=== PATIENT | male | born 1970 | race Caucasian/White ===

== ENCOUNTER 2019-08-22 13:18 | Emergency (ER) | payer OTHER, SELFPAY ==
[2019-08-22 13:25] VITALS: BP 155/100; PULSE 111; TEMP 36.8; O2SAT 99
--- NOTE | 2019-08-22 13:45 | DI.CT_ITS ---
EXAM: CT HEAD WO CLINICAL HISTORY: Amnesia after sex. TECHNIQUE: Imaging Protocol: Axial computed tomography images with coronal and sagittal reformatted images were created and reviewed COMPARISON: No exams were available for comparison FINDINGS: Ventricles and Extra axial spaces: Normal in size and morphology for the patient's age. Hemorrhage: None. Cerebral parenchyma: Normal. Midline shift: None. Brainstem/Cerebellum: Normal. Calvarium: Normal. Visualized Paranasal sinuses/Mastoids: Clear. IMPRESSION: Normal CT of the head. RADIATION DOSE DELIVERED: DATA REPOSITORY: All CT scans at this facility are submitted to the National Radiology Data Registry (NRDR) Dose Index Registry (DIR) with the [employer] (A[employer]). RADIATION OPTIMIZATION: All CT scans at this facility use at least one of these dose optimization te chniques: automated exposure control; mA and/or kV adjustment per patient size (includes targeted exa ms where dose is matched to clinical indication); or iterative reconstruction.
[2019-08-22 14:02] LABS: Bilirubin Negative (Negative); Blood Negative (Negative); Clarity Clear (Clear); Glucose Negative (Negative); Ketones Negative (Negative); Leukocyte Esterase Negative (Negative); Nitrite Negative (Negative); Urobilinogen 0.2 EU/dL (Up TO 0.2)
[2019-08-22 14:15] LABS: Abs Immature Grans 0.04 k/cumm (0.0-0.09); Absolute Basophil Count 0.03 k/cumm (0.0-0.2); Absolute Eosinophil Count 0.07 k/cumm (0.0-0.7); Absolute Monocyte Count 0.56 k/cumm (0.11-0.7); Basophils % 0.3; Eosinophils % 0.6; HCT 42.5 % (40.0-50.0); HGB 15.6 g/dL (13.5-17.5); Immature Grans % 0.4 %; Lymphocytes % 18.3; Mean Corp. HGB Concentration 36.7 g/dL (32.0-36.0); Mean Corpuscular Hemoglobin 32.8 pg (27.0-33.0); Mean Corpuscular Volume 89.5 fL (80-95); Mean Platelet Volume 10.1 fL (8.0-11.0); Monocytes % 5.1; Neutrophils % 75.3; Platelet Count 264 x1000/uL (130-400); RBC 4.75 m/cumm (4.50-6.00); RBC Distribution Width 12.5 % (11.8-14.1)
[2019-08-22 14:16] LABS: Absolute Lymphocyte Count 1.99 k/cumm (1.2-3.4); Absolute Neutrophil Count 8.21 k/cumm (1.2-6.7)
[2019-08-22 14:23] LABS: ALT 63 U/L (16-63); AST 29 U/L (15-37); Albumin 4.1 g/dL (3.4-5.0); Alkaline Phosphatase 81 U/L (46-116); BUN 15 mg/dL (7-18); Bilirubin, Total 0.7 mg/dL (0.2-1.0); CREATININE 1.13 mg/dL (0.70-1.30); Calcium 8.4 mg/dL (8.5-10.1); Chloride 105 mmol/L (98-107); Glucose 113 mg/dL (74-106); Potassium 3.9 mmol/L (3.5-5.1); Sodium 141 mmol/L (136-145); Total Protein 7.4 g/dL (6.4-8.2)
--- NOTE | 2019-08-22 14:50 | DI.VRAD_ITS ---
PROCEDURE INFORMATION: Exam: CT Head Without Contrast Exam date and time: 08/22/2019 1:55 PM Age: 49 years old Clinical indication: Other: Amnesia after sex TECHNIQUE: Imaging protocol: Computed tomography of the head without contrast. COMPARISON: No relevant prior studies available. FINDINGS: Brain: The ventricles and the cortical sulci are within normal limits. There is no evidence of acute hemorrhage, mass or shift. There is no evidence of an acute cortical or major vascular territory infarct. No abnormal extra-axial collections are identified. Ventricles: No significant ventricular enlargement/hydrocephalus. Bones/joints: There is no acute bony abnormality Sinuses: No significant sinus opacification or fluid level Mastoid air cells: No significant mastoid opacification Soft tissues: Subcutaneous soft tissues are unremarkable IMPRESSION: No acute findings. Dictated and Authenticated by: Samantha Fraga MD. Ordering:NAV Herman MD
--- NOTE | 2019-08-22 15:02 | ED.GENADUL_ITS ---
Discharge Plan Disposition Patient Disposition: HOME Condition: Improving Discharge Details Chief Complaint: GenMedical Clinical Impression: Memory loss, short term Primary Care Provider: Unknown,Unknown ED Provider: Virgil Cruz Home Meds and New Rx's Prescriptions: No Action paroxetine HCl [Paxil] 40 mg Tablet 40 mg PO DAILY RF: 0 Discharge Instructions Instructions: Transient Global Amnesia (ED) Additional Instructions: Work-up in the ER has been unremarkable and it appears as though his cognition is returning to baseline. Like we discussed, transient global amnesia is the most likely diagnosis however at this time I will use short-term memory loss to have you follow-up with our neurology team. Please contact her office on Saturday for prompt outpatient reevaluation. Please watch for new or worsening symptoms and return to the ER for any concerns Referrals: Lizeth Bernardo MD [ [facility] STAFF PHYSICIAN] - Medical Decision Making 49-year-old gentleman presenting with short-term memory loss after sexual intercourse today. His neurologic exam is unremarkable except for the inability to answer short-term memory questions. There is no recent illness or trauma. Most likely diagnosis is transient global amnesia; however, this is now his second episode and he has never been evaluated or worked up. I do believe that obtaining routine laboratory values and obtaining head CT is reasonable to rule out intracranial process, infectious process, electrolyte abnormality, etc. Work-up in the ER is unremarkable for emergent process. Upon reevaluation patient was noted to ambulate steadily to the restroom. Patient's and friend believe that he is not back to baseline but he is progressing in that direction. They report that his sense of humor is returning and that he does seem to remember a few details now that he could not remember earlier. We discussed his work-up here in the ER. We discussed her options. Observing in the ER longer was offered until patient did return to baseline mental status but patient and friend did not feel this was necessary. They were comfortable with releasing him into their care at this time with the understanding that he could return to the ER anytime for new or worsening symptoms. Otherwise I have given them the name and number of our local neurologist who I recommend they contact on Saturday for prompt outpatient reevaluation. Imaging Data Radiologic Study: Imaging: CT Scan My impression: CT of the head without contrast read by virtual radiology as no acute findings. Lab Data Lab results reviewed: Yes I reviewed the patient's lab results. Lab results narrative: Laboratory Tests Range/Units 08/22/19 08/22/19 08/22/19 13:40 14:00 14:00 WBC (4.4-10.8) k/cumm 10.90 H RBC (4.50-6.00) m/cumm 4.75 Hgb (13.5-17.5) g/dL 15.6 Hct (40.0-50.0) % 42.5 MCV (80-95) fL 89.5 MCH (27.0-33.0) pg 32.8 MCHC (32.0-36.0) g/dL 36.7 H RDW (11.8-14.1) % 12.5 Plt Count (130-400) x1000/uL 264 MPV (8.0-11.0) fL 10.1 Immature Gran % % 0.4 Neutrophils % 75.3 Lymphocytes % 18.3 Monocytes % 5.1 Eosinophils % 0.6 Basophils % 0.3 Absolute Neutrophils (1.2-6.7) k/cumm 8.21 H Absolute Lymphocytes (1.2-3.4) k/cumm 1.99 Absolute Monocytes (0.11-0.7) k/cumm 0.56 Absolute Eosinophils (0.0-0.7) k/cumm 0.07 Absolute Basophils (0.0-0.2) k/cumm 0.03 Sodium (136-145) mmol/L 141 Potassium (3.5-5.1) mmol/L 3.9 Chloride (98-107) mmol/L 105 Carbon Dioxide (21.0-32.0) mmol/L 25.0 Anion Gap (3-11) mmol/L 11.0 BUN (7-18) mg/dL 15 Creatinine (0.70-1.30) mg/dL 1.13 Estimated GFR/1.73 m2 (mL/min/1.73m2) >= 60.00 Glucose (74-106) mg/dL 113 H Calcium (8.5-10.1) mg/dL 8.4 L Total Bilirubin (0.2-1.0) mg/dL 0.7 AST (15-37) U/L 29 ALT (16-63) U/L 63 Alkaline Phosphatase (46-116) U/L 81 Total Protein (6.4-8.2) g/dL 7.4 Albumin (3.4-5.0) g/dL 4.1 Urine Color (Yellow) Yellow Urine Clarity (Clear) Clear Urine pH (5-8) 6.0 Ur Specific [place] (1.005-1.025) 1.010 Urine Protein (Negative) mg/dL Negative Urine Ketones (Negative) mg/dL Negative Urine Blood (Negative) Negative Urine Nitrite (Negative) Negative Urine Bilirubin (Negative) Negative Urine Urobilinogen (Up TO 0.2) EU/dL 0.2 Ur Leukocyte Esterase (Negative) Negative Urine Glucose (Negative) mg/dL Negative ECG Data Attestation: I personally reviewed and interpreted this ECG (s) as follows: Interpretation: EKG performed at 1412. Reveals sinus rhythm, ventricular rate of 95. No acute ST elevation or depression segments HPI General Mode of arrival: ambulatory . Date/Time Provider Initiated Documentation: 08/22/19 13:28 . Limitations to Documentation: altered mental status . Information obtained by: patient and family . HPI Narrative: 49-year-old gentleman presents to the ER with his for evaluation of short-term memory loss. Patient does take Paxil otherwise no past medical history or medications. Patient is unable to give me information regarding the events today. Patient's reports that they had sexual intercourse around 9 AM and shortly after he developed confusion and short-term memory loss. She reports this happened approximately 1 year ago, resolved on its own in a few hours so they never sought medical attention. Denies any recent illness or trauma. Denies headache, visual changes, neck pain, numbness, tingling, weakness, chest pain, shortness of breath abdominal pain, nausea, vomiting, incontinence. Patient's reports that his long-term memory appears to be intact but really cannot give much information regarding last night or this morning. Related Data Home Medications Medication Instructions Recorded Confirmed paroxetine HCl [Paxil] 40 mg PO DAILY 08/22/19 08/22/19 Allergies Allergy/AdvReac Type Severity Reaction Status Date / Time No Known Allergies Allergy Unverified 08/22/19 13:32 General Stated Complaint: GenMedical KUSHAL: 3 Review of Systems Constitutional Constitutional: Denies chills, Denies fatigue, Denies fever(s), Denies headache(s) and Denies weakness Eyes Eyes: Denies change in vision ENT Ears, Nose, Mouth, and Throat: Denies dizziness and Denies headache(s) Cardiovascular Cardiovascular: Denies chest pain and Denies dyspnea Respiratory Respiratory: Denies dyspnea and Denies wheezing Gastrointestinal Gastrointestinal: Denies abdominal pain, Denies nausea and Denies vomiting Musculoskeletal Musculoskeletal: Denies numbness and Denies tingling Integumentary/Breasts Skin/Breast: Denies rash Neurologic Neurologic: Reports confusion, Denies dizziness, Denies headache(s), Denies numbness, Denies tingling and Denies weakness Psychiatric Psychiatric: Reports confusion Endocrine Endocrine: Denies fatigue Allergic/Immunologic Allergic/Immunologic: Denies wheezing Exam Const General: cooperative, healthy appearing, comfortable and no acute distress Orientation: alert, awake, oriented to person, oriented to place and other (Patient knows year is 2019, does not know exact date) [facility] Head: normal to inspection, no palpable skull fracture, normocephalic and atraumatic Ears: external ears normal, TM's normal bilaterally and EAC's normal General nose exam: external nose normal Face and sinus: normal facial exam Mouth: oral mucosae normal and moist mucous membranes Throat: posterior oropharynx normal Eyes General: appearance normal, both eyes and all related structures Periorbital: periorbital findings normal Eyelids: eyelids normal Conjunctivae: conjunctivae normal Sclera: sclerae normal Cornea: corneas normal Pupils: PERRL EOM: EOM intact bilaterally Direct ophthalmoscopy: normal light reflex Neck Neck: normal visual inspection, full ROM, no lymphadenopathy, no meningeal signs, trachea midline and supple Resp Effort & Inspection: normal respiratory effort and able to speak in complete sentences Auscultation: clear to auscultation bilaterally Cardio Rate: regular rate Rhythm: regular rhythm GI Palpation: soft and tender Back/Spine/Pelvis Back: No back tenderness Skin General skin exam: no rashes or lesions noted Neuro General: alert, awake, moves all extremities, no meningeal signs, no focal motor deficits and other (Only deficit is that of short-term memory recollections) Cranial Nerves: CN's II-XI intact bilaterally Cognition: abnormal cognition Speech: other (Pt speaks in full sentences, does repeat questions regarding today's events) Gait: normal gait Motor: muscle tone normal throughout, strength 5/5 throughout, no pronator drift, no movement abnormalities noted and no fasciculations Sensory Exam: no sensory deficits noted Coordination: [id number] test normal and rapid alternating movement UE normal Extrem General: normal to inspection, full ROM and normal capillary refill Psych Appearance: grossly normal Course Vital Signs Vital signs: Vital Signs Temperature 36.8 C 08/22/19 13:25 Pulse 111 H 08/22/19 13:25 Blood Pressure 155/100 H 08/22/19 13:25 Pulse Oximetry 99 08/22/19 13:25 Temperature 36.8 C 08/22/19 13:25 Temperature Source Skin 08/22/19 13:25 Pulse 111 H 08/22/19 13:25 Respiratory Effort Non-Labored 08/22/19 13:48 Blood Pressure 155/100 H 08/22/19 13:25 Blood Pressure Position Sitting 08/22/19 13:25 Pulse Oximetry 99 08/22/19 13:25 Oxygen Delivery Method Room Air 08/22/19 13:25 Oxygen Flow Rate 0 08/22/19 13:25 Lab/Test Results Lab/Test Results: Laboratory Tests Range/Units 08/22/19 08/22/19 08/22/19 13:40 14:00 14:00 WBC (4.4-10.8) k/cumm 10.90 H RBC (4.50-6.00) m/cumm 4.75 Hgb (13.5-17.5) g/dL 15.6 Hct (40.0-50.0) % 42.5 MCV (80-95) fL 89.5 MCH (27.0-33.0) pg 32.8 MCHC (32.0-36.0) g/dL 36.7 H RDW (11.8-14.1) % 12.5 Plt Count (130-400) x1000/uL 264 MPV (8.0-11.0) fL 10.1 Immature Gran % % 0.4 Neutrophils % 75.3 Lymphocytes % 18.3 Monocytes % 5.1 Eosinophils % 0.6 Basophils % 0.3 Absolute Neutrophils (1.2-6.7) k/cumm 8.21 H Absolute Lymphocytes (1.2-3.4) k/cumm 1.99 Absolute Monocytes (0.11-0.7) k/cumm 0.56 Absolute Eosinophils (0.0-0.7) k/cumm 0.07 Absolute Basophils (0.0-0.2) k/cumm 0.03 Sodium (136-145) mmol/L 141 Potassium (3.5-5.1) mmol/L 3.9 Chloride (98-107) mmol/L 105 Carbon Dioxide (21.0-32.0) mmol/L 25.0 Anion Gap (3-11) mmol/L 11.0 BUN (7-18) mg/dL 15 Creatinine (0.70-1.30) mg/dL 1.13 Estimated GFR/1.73 m2 (mL/min/1.73m2) >= 60.00 Glucose (74-106) mg/dL 113 H Calcium (8.5-10.1) mg/dL 8.4 L Total Bilirubin (0.2-1.0) mg/dL 0.7 AST (15-37) U/L 29 ALT (16-63) U/L 63 Alkaline Phosphatase (46-116) U/L 81 Total Protein (6.4-8.2) g/dL 7.4 Albumin (3.4-5.0) g/dL 4.1 Urine Color (Yellow) Yellow Urine Clarity (Clear) Clear Urine pH (5-8) 6.0 Ur Specific [place] (1.005-1.025) 1.010 Urine Protein (Negative) mg/dL Negative Urine Ketones (Negative) mg/dL Negative Urine Blood (Negative) Negative Urine Nitrite (Negative) Negative Urine Bilirubin (Negative) Negative Urine Urobilinogen (Up TO 0.2) EU/dL 0.2 Ur Leukocyte Esterase (Negative) Negative Urine Glucose (Negative) mg/dL Negative
[2019-08-22 15:27] VITALS: RESP 16
[2019-08-22 15:33] VITALS: BP 128/93; PULSE 112; RESP 18; TEMP 36.6; O2SAT 98
== END 2019-08-22 15:21 | disposition home or self-care (01) ==
PROVIDERS: Emergency Provider Physician Assistant
DX: R41.3 Other amnesia (principal)
CPT/HCPCS: 36415; 80053; 99284; 70450; 81003; 85025